=== PATIENT | female | born 1980 | race Hispanic/Latino ===

== ENCOUNTER 2024-03-07 19:33 | Emergency (ER) | payer SELFPAY ==
[~2024-03-07] VITALS: Ht 165.1 cm; Wt 79.4 kg
[2024-03-07 21:12] VITALS: PULSE 72; RESP 18; TEMP 98.1; O2SAT 100
[2024-03-08] MEDS ORDERED: ONDANSETRON ODT4 MG PO (00:43)
[2024-03-08] MEDS ORDERED: ULTRAM 50MG50 MG PO (00:43)
== END 2024-03-08 00:49 | disposition home or self-care (01) ==
LOC: ER 19:36
DX: S82.64XA Nondisplaced fracture of lateral malleolus of right fibula, initial encounter for closed fracture (principal); X50.1XXA Overexertion from prolonged static or awkward postures, initial encounter; Y93.01 Activity, walking, marching and hiking; Y92.89 Other specified places as the place of occurrence of the external cause
CPT/HCPCS: 99284